=== PATIENT | female | born 1995 | race African-American/Black ===

== ENCOUNTER 2019-02-18 22:30 | Emergency (ER) | payer SELFPAY ==
[~2019-02-18] VITALS: Ht 165.1 cm; Wt 129.5 kg
[2019-02-18 22:38] VITALS: BP 138/91; TEMP 96.9
[2019-02-19] MEDS ORDERED: FLEXERIL 1010 MG/TAB PO (00:03)
[2019-02-19] MEDS ORDERED: VOLTAREN 75 DR75 MG PO (00:03)
[2019-02-19 01:40] VITALS: PULSE 97
== END 2019-02-19 01:42 | disposition home or self-care (01) ==
LOC: COL.ER 22:30
DX: S43.401A Unspecified sprain of right shoulder joint, initial encounter (principal); W10.9XXA Fall (on) (from) unspecified stairs and steps, initial encounter; Y92.009 Unspecified place in unspecified non-institutional (private) residence as the place of occurrence of the external cause
CPT/HCPCS: J1885; J2360; J3010

== ENCOUNTER 2020-10-12 19:14 | Emergency (ER) | payer OTHER ==
[~2020-10-12] VITALS: Ht 165.1 cm; Wt 170.5 kg
[~2020-10-12 19:14] MED LIST: FLEXERIL 1010 MG/TAB PO; VOLTAREN 75 DR75 MG PO; ZOFRAN ODT4 MG PO
[2020-10-12 19:23] VITALS: BP 139/79; TEMP 97.5
[2020-10-12 21:00] VITALS: PULSE 93
== END 2020-10-12 21:44 | disposition home or self-care (01) ==
LOC: COL.ER 19:14
DX: S63.602A Unspecified sprain of left thumb, initial encounter (principal); Z88.5 Allergy status to narcotic agent; W23.1XXA Caught, crushed, jammed, or pinched between stationary objects, initial encounter

== ENCOUNTER 2020-10-31 07:56 | Outpatient (RCR) | payer OTHER | END 2021-01-22 | disposition home or self-care (01) | LOC: WSOH | DX: S63.642A Sprain of metacarpophalangeal joint of left thumb, initial encounter (principal); E66.01 Morbid (severe) obesity due to excess calories; Y99.0 Civilian activity done for income or pay ==

== ENCOUNTER 2021-02-03 11:30 | Outpatient (RCR) | payer OTHER | END 2021-03-17 09:48 | disposition home or self-care (01) | LOC: WSOT 11:30 | DX: S63.642D Sprain of metacarpophalangeal joint of left thumb, subsequent encounter (principal); E66.01 Morbid (severe) obesity due to excess calories; Y99.0 Civilian activity done for income or pay ==

== ENCOUNTER 2021-02-05 12:39 | Outpatient (RCR) | payer OTHER | END 2021-04-14 11:58 | disposition home or self-care (01) | LOC: WSOH 12:39 | DX: S63.642D Sprain of metacarpophalangeal joint of left thumb, subsequent encounter (principal); E66.01 Morbid (severe) obesity due to excess calories; Y99.0 Civilian activity done for income or pay ==

== ENCOUNTER 2021-03-03 17:50 | Emergency (ER) | payer SELFPAY ==
[~2021-03-03] VITALS: Ht 165.1 cm; Wt 159.1 kg
[2021-03-03 17:56] VITALS: TEMP 98.3
[2021-03-03 20:04] VITALS: BP 136/95; PULSE 105
== END 2021-03-03 20:04 | disposition home or self-care (01) ==
LOC: COL.ER 17:50
DX: S63.602A Unspecified sprain of left thumb, initial encounter (principal); S49.91XA Unspecified injury of right shoulder and upper arm, initial encounter; W19.XXXA Unspecified fall, initial encounter; Y92.59 Other trade areas as the place of occurrence of the external cause; Y99.0 Civilian activity done for income or pay
CPT/HCPCS: J1885

== ENCOUNTER 2021-04-14 11:15 | Outpatient (RCR) | payer OTHER | END 2021-06-10 | disposition home or self-care (01) | LOC: PT.GENESIS | DX: M25.311 Other instability, right shoulder (principal) ==